=== PATIENT | female | born 1960 | race African-American/Black ===

== ENCOUNTER 2019-08-28 12:05 | Emergency (ER) | payer OTHER ==
[~2019-08-28] VITALS: Ht 160 cm; Wt 73.5 kg
[2019-08-28] MEDS ORDERED: SINGULAIR10 MG PO (12:50)
== END 2019-08-28 18:12 | disposition home or self-care (01) ==
LOC: ER 12:05
DX: K57.90 Diverticulosis of intestine, part unspecified, without perforation or abscess without bleeding (principal)

== ENCOUNTER 2019-09-26 05:39 | Day surgery (SDC) | payer OTHER ==
[~2019-09-26 05:39] MED LIST: CLARIN PO; FLUTICASONE-SA1 EAC5; SINGULAIR10 MG PO; VENTOLIN HFA18 GM IH
== END 2019-09-26 18:00 | disposition home or self-care (01) ==
LOC: CIR.AMB 05:39 → ADM 11:00 → CIR.AMB 11:00
DX: K64.8 Other hemorrhoids (principal); K64.4 Residual hemorrhoidal skin tags; K62.0 Anal polyp